=== PATIENT | female | born 1995 | race Caucasian/White ===

== ENCOUNTER 2020-08-17 18:41 | Emergency (ER) | payer OTHER ==
[~2020-08-17] VITALS: Ht 157.5 cm; Wt 99.8 kg
[2020-08-17] MEDS ORDERED: ENBREL50 MG/1 M1 SUBQ (18:55)
[2020-08-17 19:04] LABS: URINE BILIRUBIN NEGATIVE (Negative); URINE BLOOD 1+ (Negative); URINE CLARITY SL CLOUDY; URINE COLOR YELLOW; URINE GLUCOSE-RANDOM NEGATIVE (Negative); URINE KETONES 2+ (Negative); URINE NITRITE-REFLEX NEGATIVE (Negative); URINE PROTEIN NEGATIVE (Negative); URINE SPECIFIC GRAVITY 1.015 (1.005-1.030); URINE UROBILINOGEN 0.2 E.U./dl (0.2-1.0)
[2020-08-17 19:05] LABS: URINE LEUKOCYTES-REFLEX 2+ (Negative)
[2020-08-17 19:19] LABS: SQUAMOUS >10 Many /LPF (0-3); WBC CLUMPS Few (None Seen)
[2020-08-17 19:20] LABS: BACTERIA-REFLEX >30 Many /HPF (None Seen); CASTS None Seen /LPF (None Seen); CRYSTALS None Seen /LPF (None Seen); MUCUS 4-6 Moderate strn/LPF (None Seen); URINE RBC 3-10 Few /HPF (0-2)
[2020-08-17] MEDS ORDERED: KEFLEX500 M1 PO (21:04)
[2020-08-17 21:06] VITALS: BP 152/101
== END 2020-08-17 21:12 | disposition home or self-care (01) ==
LOC: M.ERS 18:41
PROVIDERS: Physician Assistant
DX: O23.40 Unspecified infection of urinary tract in pregnancy, unspecified trimester (principal); M06.9 Rheumatoid arthritis, unspecified; Z3A.00 Weeks of gestation of pregnancy not specified